=== PATIENT | male | born 1990 | race Caucasian/White ===

== ENCOUNTER 2021-07-19 18:19 | Emergency (ER) | payer OTHER ==
[~2021-07-19] VITALS: Ht 172.7 cm; Wt 75.0 kg
[2021-07-19 19:03] LABS: COVID AG,FIA SOURCE NASAL SWAB
[2021-07-19 19:47] VITALS: BP 107/78
== END 2021-07-19 19:50 | disposition home or self-care (01) ==
LOC: EMS 18:22
DX: J06.9 Acute upper respiratory infection, unspecified (principal); Z20.822 Contact with and (suspected) exposure to COVID-19
CPT/HCPCS: 71045; 99284